=== PATIENT | male | born 1955 | race Caucasian/White ===

== ENCOUNTER 2016-06-30 07:47 | Inpatient (IN) | payer OTHER ==
[~2016-06-30] VITALS: Ht 182.9 cm; Wt 92.0 kg
[2016-06-30] VITALS (33 sets, daily range): BP systolic 108–142; BP diastolic 63–95; PULSE 72–94; RESP 12–19; Ht 182.9 cm; Wt 92.0 kg
[2016-06-30] MEDS ORDERED: VENL75TA2 PO (08:13)
[2016-06-30] MEDS ORDERED: AMLO5TAB4 PO (08:13)
[2016-06-30] MEDS ORDERED: HYDR-902 PO (09:13)
[2016-06-30] MEDS ORDERED: CEFAZOLIN 2 GM/50 ML (PMX) 50 ML IVPB SCH (09:30)
[2016-06-30] MEDS ORDERED: LACTATED RINGER'S 1,000 ML IV* SCH (09:30)
--- NOTE | 2016-06-30 09:57 | HPN ---
Date/Time of Note Date/Time of Note DATE: 06/30/16 TIME: 09:56 Interval H&P Admission Note Pt. seen H&P reviewed: No system changes ELISABETH MA PA-C Jun 30, 2016 09:57
[2016-06-30] MEDS ORDERED: DIPHENHYDRAMINE 50 MG INJ IV PRN ×2 (10:00→12:30)
[2016-06-30] MEDS ORDERED: ONDANSETRON 4 MG INJ IV PRN ×2 (10:00→12:30)
[2016-06-30] MEDS ORDERED: AL HYDROX/MG HYDROX/SIMETH 30 ML CUP PO PRN (10:00)
[2016-06-30] MEDS ORDERED: NALOXONE (0.4 MG/ML) INJ IV PRN (10:00)
[2016-06-30] MEDS ORDERED: BISACODYL 10 MG SUPP PR PRN (10:00)
[2016-06-30] MEDS ORDERED: CEFAZOLIN 1 GM/50 ML (PMX) 50 ML IVPB SCH (10:00)
[2016-06-30] MEDS ORDERED: ZOLPIDEM 5 MG TAB PO PRN (10:00)
[2016-06-30] MEDS ORDERED: HYDROmorphONE 1 MG/ML SYG IV PRN (10:00)
[2016-06-30] MEDS ORDERED: ACETAMINOPHEN 325 MG TAB PO PRN (10:00)
[2016-06-30] MEDS ORDERED: CEFAZOLIN 1 GM INJ ONE ×4 (10:13→13:08)
[2016-06-30] MEDS ORDERED: CA CHLORIDE 10% 10 ML SYRINGE ONE (10:13)
[2016-06-30] MEDS ORDERED: THROMBIN 5000 UNIT VIAL ONE (10:13)
[2016-06-30] MEDS ORDERED: HEPARIN 1000 UNITS/ML 10 ML INJ ONE (10:13)
[2016-06-30] MEDS ORDERED: BUPIVACAINE 0.25%/EPI (SDV) 30 ML INJ ONE (10:13)
[2016-06-30] MEDS ORDERED: SURGIFOAM POWDER 1 GM KIT ONE (10:13)
[2016-06-30] MEDS ORDERED: GELATIN SIZE 100 SPONGE ONE (10:14)
[2016-06-30] MEDS ORDERED: SODIUM CL BACTERIOSTATIC 30 ML INJ ONE (10:14)
[2016-06-30] MEDS ORDERED: PROPOFOL 20 ML ONE (10:19)
[2016-06-30] MEDS ORDERED: SUCCINYLCHOLINE CHLORIDE 100 MG/5 ML SYG IV ONE (10:19)
[2016-06-30] MEDS ORDERED: MIDAZOLAM 1 MG/ML 2 ML INJ ONE (10:19)
[2016-06-30] MEDS ORDERED: METOCLOPRAMIDE 10 MG INJ ONE (10:19)
[2016-06-30] MEDS ORDERED: ROCURONIUM 50 MG INJ ONE ×2 (10:19→11:09)
[2016-06-30] MEDS ORDERED: EPHEDrine SULFATE 50 MG/5 ML SYG ONE (11:03)
[2016-06-30] MEDS ORDERED: METOCLOPRAMIDE 10 MG INJ IV PRN (12:30)
[2016-06-30] MEDS ORDERED: MEPERIDINE 25 MG INJ IV PRN (12:30)
[2016-06-30] MEDS ORDERED: HYDROmorphONE (0.2 MG/ML) 10ML SYG IV PRN ×3 (12:30)
[2016-06-30] MEDS ORDERED: BUPIVACAINE 0.25% (MPF) 10 ML 10 ML VIAL ONE (13:02)
[2016-06-30] MEDS ORDERED: FENTAnyl 50 MCG/ML VIAL ONE (13:03)
[2016-06-30] MEDS ORDERED: NEOSTIGMINE 3 MG/3 ML SYRINGE ONE (13:40)
[2016-06-30] MEDS ORDERED: GLYCOPYRROLATE 1 MG INJ ONE (13:40)
--- NOTE | 2016-06-30 13:59 | RADRPT ---
PROCEDURE: XR Lumbar Spine one view. CLINICAL INDICATION: Low back pain. Intraoperative. TECHNIQUE: Prone portable cross-table lateral. COMPARISON: No prior studies are available for comparison. FINDINGS: For the purposes of this report, the last apparent true disc level is considered to be L5-S1. Based on this, the posterior needle markers are present at L3 spinous process level and L5-S1 spinous pro cess level. IMPRESSION: 1. Intraoperative imaging as described above. RPTAT: QQ .Bill Gaspar MD, Date Time Electronically viewed and signed by .Bill Gaspar MD, on 06/30/2016 13:59 .R/
--- NOTE | 2016-06-30 14:00 | RADRPT ---
PROCEDURE: XR Lumbar Spine one view. CLINICAL INDICATION: Low back pain. Intraoperative. TECHNIQUE: Prone portable cross-table lateral. COMPARISON: No prior studies are available for comparison. FINDINGS: For the purposes of this report, the last apparent true disc level is considered to be L5-S1. Based on this, the posterior surgical instruments are present at the L2-3, L3-4, L4-5, and L5-S1 levels. IMPRESSION: 1. Intraoperative imaging as described above. RPTAT: QQ .Bill Gaspar MD, MD Date Time Electronically viewed and signed by .Bill Gaspar MD, MD on 06/30/2016 14:00 .R/
[2016-06-30] MEDS: HYDROmorphONE 0.2 MG/ML PCA IV SCH ×2 (14:21→20:00)
--- NOTE | 2016-06-30 14:22 | OPR ---
DATE OF OPERATION: 06/30/2016 PREOPERATIVE DIAGNOSIS: L3 to L4, L4 to L5, L5 to S1 stenosis with radiculopathy. POSTOPERATIVE DIAGNOSIS: L3 to L4, L4 to L5, L5 to S1 stenosis with radiculopathy. PROCEDURE PERFORMED: 1. Central decompressive laminectomy at L3 to L4, L4 to L5, L5 to S1 with decompression of L3, L4, L5, S1 nerve roots. 2. Intraoperative neuromonitoring (2.5 hours). 3. Epidural injection via catheter. 4. Lateral localizing film x2. PRIMARY SURGEON: Jean Carlos Blanton MD HARDWARE TECHNICIAN: LATASHA Dillard NEED FOR MILL WORK: During this spinal surgical procedure, my delinquent tax collector assistant was used to retrac t and protect the spinal nerves and dural sac. My delinquent tax collector assistant also employed the suction catheters to evacuate blood from the surgical field to improve visualization of the neural structures. The viktor tant was medically necessary to facilitate the completion of the surgery in a safe and expeditious m nida. [facility] regulations, as well as hospital bylaws, preclude the use of non-license d health care personnel, such as operating room technicians, to perform these functions. FINDINGS: Neuromonitoring at the start of the case revealed bilateral L3 amplitude down 40%, bilate ral L4 amplitude down 30%, bilateral L5 amplitude down 40%, bilateral S1 amplitude down 30%. At the end of the case, nerve signals returned to normal. The patient had severe stenosis from L3 to the sacrum. ESTIMATED BLOOD LOSS: 400 mL with blood returned via Cell Saver. DRAINS: x1. SPECIMENS: Spinous process. COMPLICATIONS OF PROCEDURES: None. ANESTHESIOLOGIST: Akosua Bright MD TYPE OF ANESTHESIA: General. INDICATIONS FOR PROCEDURE: This is a 61-year-old gentleman with lumbosacral radiculopathy in the se tting of multilevel stenoses. He has failed nonoperative measures; therefore, it was recommended th at he undergo the above procedure. DESCRIPTION OF PROCEDURE IN DETAIL: The patient was identified in the preoperative holding area, [facility], taken to the operating room, where he was successfully placed under general an esthesia. Neuromonitoring leads were placed, sequential compressive devices were applied. Oh ca theter was introduced. Neuromonitoring was utilized during the procedure for 2.5 hours to include S SEP, MEP, and EMG. This was performed by Quill. Start time was 11:00 a.m., closure time was 1:30 p.m. The patient was placed on the operating table in prone position over a Franko frame. All bony prominences were padded. Back was then prepped and draped in the usual sterile fashion. Spinal needles were placed and lateral localizing films obtained to confirm the correct levels. I next injected the paraspinal musculature with 0.25% Marcaine and epinephrine. Incision was then made from L3 to the sacrum. Incision was taken down to the dorsal fascia, which w as incised with Bovie cautery. I then subperiosteally dissected the L3, L4, L5, and S1 lamina bilat erally. Retractors were placed. Kochers were placed surrounding the spinous processes and repeat l ateral films obtained to confirm the correct levels. Once this was confirmed, a central decompressi ve laminectomy was performed at L3 to L4, L4 to L5 and L5 to S1 using Leksell rongeurs, Garrett arvind eurs and pituitary punches. Ligamentum flavum was dissected. Lateral recesses decompressed. I the n decompressed the L3, L4, L5, S1 nerve roots bilaterally throughout their intraspinal course. This was done bilaterally. Once this was done, all nerve signals returned to normal. Hemostasis was ac hieved with Surgifoam and bone wax. The wound was then irrigated. A Valsalva maneuver was performe d and there was no leak of CSF. An additional dose of antibiotics were given. Epidural catheter was passed through which I injected 100 mcg of fentanyl mixed with 2 mL of Marcain e 0.25% preservative-free, and the catheter was pulled. Anesthesiologist yoshi peripheral blood, whi ch was spun using the wumo device, and took the platelet-poor plasma mixed with thrombin and inj ected this over the dura for hemostatic purposes. A deep subfascial drain was placed. The retracto rs were removed. I closed the deep fascia with a running #1 Stratafix suture. I then closed the vázquez bcutaneous tissue with a 2-0 Vicryl stitch. A 4-0 Monocryl closure was then performed. Dermabond a nd sterile dressings were then applied. The patient was then awakened from anesthesia and taken to the recovery room in stable condition. Lap, sponge, and instrument counts were correct x2. There w ere no apparent complications during the procedure. The patient will be admitted to the orthopedic uriostegui for routine postoperative care to include pain c ontrol, neurovascular checks, antibiotics, and physical therapy. Dictated By: JEAN CARLOS STEELE/JUDSON Conf#: [id number] DID#: [id number]
[2016-06-30] MEDS: AMLODIPINE 5 MG TAB PO SCH (17:00)
--- NOTE | 2016-06-30 17:27 | CONS ---
DATE OF ADMISSION: 06/30/2016 DATE OF CONSULTATION: 06/30/2016 TYPE OF CONSULTATION: POSTOPERATIVE MEDICAL CONSULTATIVE NOTE Thank you very much for allowing me to evaluate the above patient, a 61-year-old male who just under went lumbar back surgery. HISTORICAL EVENTS: As you well know, this patient has had ongoing and disabling left leg pain and f ollowing your evaluation and MRI imaging, the patient elected to proceed with surgery. Postoperativ viviana, he notes modest back discomfort, but the absence of cough, wheezing, shortness of breath, nause a, vomiting, abdominal or chest pain. PAST MEDICAL HISTORY: Includes: 1. Right knee, left ankle, right shoulder and cervical spine surgery. 2. History of hypertension. 3. Hyperlipidemia. MEDICATIONS: Prior to admission: 1. Lidocaine patch p.r.n. 2. Amlodipine 5 mg per day. 3. Venlafaxine 37.5 mg 2 caps daily. 4. Soma 350 mg t.i.d. p.r.n. SOCIAL HISTORY: He is , works in the [employer], does not smoke. PHYSICAL EXAMINATION: GENERAL: [place] male, no acute distress. VITAL SIGNS: BP 122/80, pulse 70, respirations 20. He was afebrile. EYES: Extraocular muscles were full. NOSE, MOUTH, AND THROAT: Normal. NECK: Supple. There was no jugular venous distention, thyroid enlargement or adenopathy. Carotids 2+, no bruits. LUNGS: Clear. HEART: Rhythm regular, no murmur. No third or fourth sound. ABDOMEN: Nontender. Liver and spleen were not palpable. No masses or tenderness were noted. EXTREMITIES: No edema. Calves nontender. Pulses 2+. IMPRESSION: I perceive no problems with the planned surgical. IMPRESSION: 1. Stable postop lumbar laminectomy. 2. History of hypertension. Will resume Norvasc. 3. We will follow him daily and observe for signs and symptoms of thromboembolic disease. Dictated By: OPAL MEDEIROS MD MR/NTS Conf#: [id number] DID#: [id number] CC: KAIT LÓPEZ MD;*EndCC*
[2016-06-30] MEDS: D5W-0.45 NACL + KCL 20 MEQ 1,000 ML IV SCH ×2 (17:37→20:00)
[2016-06-30] MEDS ORDERED: VENLAFAXINE (XR) 75 MG CAP PO SCH (18:00)
[2016-06-30] MEDS: DOCUSATE SODIUM 100 MG CAP PO SCH (20:02)
[2016-07-01] VITALS: BP 116/75; PULSE 91; RESP 18
[2016-07-01] MEDS: CYCLOBENZAPRINE 10 MG TAB PO PRN ×3 (01:22→19:58)
[2016-07-01] MEDS: CEFAZOLIN 1 GM/50 ML (PMX) 50 ML IVPB SCH ×2 (01:22→09:40)
[2016-07-01] MEDS: CEPASTAT LOZENGE MT PRN ×3 (01:22→19:58)
[2016-07-01] MEDS: HYDROmorphONE 0.2 MG/ML PCA IV SCH ×2 (01:23→15:05)
[2016-07-01 05:00] LABS: ADD SCAN DIFF NO
[2016-07-01 05:06] LABS: BASOPHILS % 0.2 % (0.0-2.0); EOSINOPHILS % 0.2 % (0.0-7.0); HEMATOCRIT 41.5 % (42.0-52.0); HEMOGLOBIN 13.7 g/dl (14.0-18.0); LYMPHOCYTES # 0.9 10^3/ul (0.8-2.9); MEAN CORPUSCULAR HEMOGLOBIN 30.6 pg (29.0-33.0); MEAN CORPUSCULAR VOLUME 92.6 fl (82.0-101.0); MEAN PLATELET VOLUME 10.8 fl (7.4-10.4); MONOCYTE # 0.9 10^3/ul (0.3-0.9); MONOCYTES % 8.2 % (0.0-11.0); NEUTROPHIL # 9.4 10^3/ul (1.6-7.5); NEUTROPHILS % 83.1 % (39.0-77.0); PLATELET COUNT 185 10^3/UL (140-415); RED BLOOD COUNT 4.48 10^6/ul (4.70-6.10); RED CELL DISTRIBUTION WIDTH 12.7 % (11.5-14.5); WHITE BLOOD COUNT 11.3 10^3/ul (4.8-10.8)
[2016-07-01 05:14] LABS: POTASSIUM 4.6 mmol/L (3.5-5.1)
[2016-07-01 05:17] LABS: CREATININE 0.84 mg/dl (0.61-1.24)
[2016-07-01 05:18] LABS: CALCIUM 8.8 mg/dl (8.4-10.2)
[2016-07-01 05:24] VITALS: BP 112/71; PULSE 95; RESP 18
[2016-07-01] MEDS: D5W-0.45 NACL + KCL 20 MEQ 1,000 ML IV SCH ×2 (05:57→15:05)
[2016-07-01 07:39] VITALS: BP 125/74; RESP 18
--- NOTE | 2016-07-01 08:37 | CONS ---
Date/Time of Note Date/Time of Note DATE: 07/01/16 TIME: 08:35 Assessment/Plan Assessment/Plan Additional Assessment/Plan 1. Stable postop lumbar laminectomy. 2. History of hypertension, controlled 3. Labs rev Consultation Date/Type/Reason Admit Date/Time Jun 30, 2016 at 07:47 Initial Consult Date Detailed Summary Respiratory: No cough, No shortness of breath Cardiovascular: No chest pain Gastrointestinal: no complaints Genitourinary: other (chino in place) Musculoskeletal: back pain (moderate with mild leg radic pain bilat) Exam/Review of Systems Vital Signs Vitals Vital Signs Date Time Temp Pulse Resp B/P Pulse Ox O2 Delivery O2 Flow Rate FiO2 07/01/16 07:39 100.1 95 18 125/74 94 07/01/16 05:24 Nasal Cannula 2.0 Intake and Output 06/30/16 06/30/16 07/01/16 15:00 23:00 07:00 Intake Total 1150 ml 290 ml 1750 ml Output Total 720 ml 745 ml 1300 ml Balance 430 ml -455 ml 450 ml Exam Neck: No jvd Respiratory: clear to auscultation Cardiovascular: regular rate and rhythm Gastrointestinal: soft Extremities: No edema (and no calf tend) Results Result Diagram: 07/01/16 0439 07/01/16 0439 Results 24 hrs Laboratory Tests Test 07/01/16 04:39 White Blood Count 11.3 H Red Blood Count 4.48 L Hemoglobin 13.7 L Hematocrit 41.5 L Mean Corpuscular Volume 92.6 Mean Corpuscular Hemoglobin 30.6 Mean Corpuscular Hemoglobin Concent 33.0 Red Cell Distribution Width 12.7 Platelet Count 185 Mean Platelet Volume 10.8 H Neutrophils % 83.1 H Lymphocytes % 8.0 L Monocytes % 8.2 Eosinophils % 0.2 Basophils % 0.2 Nucleated Red Blood Cells % 0.0 Neutrophils # 9.4 H Lymphocytes # 0.9 Monocytes # 0.9 Eosinophils # 0.0 Basophils # 0.0 Nucleated Red Blood Cells # 0.0 Sodium Level 137 Potassium Level 4.6 Chloride Level 99 Carbon Dioxide Level 29 Anion Gap 14 Blood Urea Nitrogen 11 Creatinine 0.84 Glucose Level 133 Calcium Level 8.8 Magnesium Level 2.0 Medications Medications Current Medications Lactated Ringer's 1,000 ml @ 20 mls/hr Q24H IV* ; Start 06/30/16 at 09:30; Stop 07/02/16 at 11:29 Potassium Chloride/Dextrose/ Sod Cl (D5-1/2ns + KCl 20 Meq) 1,000 ml @ 100 mls/ hr Q10H IV Last administered on 06/30/16 20:00; Admin Dose 100 MLS/HR; Start 06/30/16 at 09:57 Oxycodone/ Acetaminophen (Endocet (10/ 325)) 1 tab Q4H PRN PO PAIN LEVEL 1-5; Start 06/30/16 at 10:00 Oxycodone/ Acetaminophen (Endocet (10/ 325)) 2 tab Q4H PRN PO PAIN LEVEL 6-10; Start 06/30/16 at 10:00 Hydromorphone HCl (Dilaudid) 0.2 mg Q1H PRN IV BREAKTHROUGH PAIN; Start at 10:00 Ondansetron HCl (Zofran Inj) 4 mg Q6H PRN IV NAUSEA AND/OR VOMITING; Start 02/05 at 10:00 Bisacodyl (Dulcolax Supp) 10 mg DAILY PRN [place] CONSTIPATION; Start 06/30/16 at 10 :00 Docusate Sodium (Colace) 100 mg BID PO ; Start 06/30/16 at 21:00 Al Hydrox/Mg Hydrox/Simethicone (Mag-Al Plus) 15 ml Q6H PRN PO CONSTIPATION/ DYSPEPSIA; Start 06/30/16 at 10:00 Acetaminophen (Tylenol Tab) 650 mg Q4H PRN PO CASTORENA OR TEMP GREATER THAN 101.3F; Start 06/30/16 at 10:00 Cyclobenzaprine HCl (Flexeril) 10 mg TID PRN PO MUSCLE SPASMS Last administered on 07/01/16 01:22; Admin Dose 10 MG; Start 06/30/16 at 10:00 Phenol (Cepastat Lozenge) 1 lozenge PRN PRN MT SORE THROAT Last administered on 07/01/16 06:03; Admin Dose 1 LOZENGE; Start 06/30/16 at 10:00 Diphenhydramine HCl (Benadryl) 25 mg Q6H PRN IV ITCHING; Start 06/30/16 at 10: 00 Naloxone HCl (Narcan) 0.2 mg Q2M PRN IV RR 8 BREATHS/MIN OR LESS; Start at 10:00 Hydromorphone HCl (Dilaudid TOP PRECIPITATOR OPERATOR) TOP PRECIPITATOR OPERATOR to be started in PACU Q4PCA IV Last administered on 07/01/16 01:23; Admin Dose 6 MG; Start 06/30/16 at 10:00 Miscellaneous Information 1. Hold TOP PRECIPITATOR OPERATOR at 1,000... TOP PRECIPITATOR OPERATOR IV ; Start 06/30/16 at 10: 00 Amlodipine Besylate (Norvasc) 5 mg DAILY PO ; Start 06/30/16 at 17:00 Venlafaxine HCl 75 mg 75 mg DAILY PO ; Start 07/01/16 at 09:00 Cefazolin Sodium (Ancef 1 Gm/50 ml (Pmx)) 50 ml @ 100 mls/hr Q8H IVPB Last administered on 07/01/16 01:22; Admin Dose 100 MLS/HR; Start 07/01/16 at 02:00 ; Stop 07/01/16 at 10:29 OPAL MEDEIROS MD Jul 01, 2016 08:37
[2016-07-01] MEDS: DOCUSATE SODIUM 100 MG CAP PO SCH (09:36)
[2016-07-01] MEDS: VENLAFAXINE (XR) 75 MG CAP PO SCH (09:36)
[2016-07-01] MEDS: AMLODIPINE 5 MG TAB PO SCH (09:37)
--- NOTE | 2016-07-01 12:18 | PN ---
Date/Time of Note Date/Time of Note DATE: 07/01/16 TIME: 12:18 Assessment/Plan Lines/Catheters IV Catheter Type (from Nrsg): Peripheral IV Oh in Place (from Nrsg): Yes Assessment/Plan Assessment/Plan s/p lumbar decompress pain control, PT, routine care Subjective 24 Hr Interval Summary c/o LBP Exam/Review of Systems Vital Signs Vitals Vital Signs Date Time Temp Pulse Resp B/P Pulse Ox O2 Delivery O2 Flow Rate FiO2 07/01/16 10:22 20 07/01/16 07:39 100.1 95 125/74 94 07/01/16 05:24 Nasal Cannula 2.0 Intake and Output 06/30/16 06/30/16 07/01/16 15:00 23:00 07:00 Intake Total 1150 ml 290 ml 1750 ml Output Total 720 ml 745 ml 1300 ml Balance 430 ml -455 ml 450 ml Exam Free Text/Dictation NVI Results Result Diagram: 07/01/16 0439 07/01/16 0439 KAIT LÓPEZ MD Jul 01, 2016 12:18
[2016-07-01 19:36] VITALS: BP 113/65; RESP 18
[2016-07-02] MEDS: HYDROmorphONE 0.2 MG/ML PCA IV SCH (01:30)
--- NOTE | 2016-07-02 03:38 | RADRPT ---
PROCEDURE: Ultrasound examination of bilateral lower extremities veins with Doppler. CLINICAL INDICATION: Leg pain and swelling. TECHNIQUE: Multiple sonographic images of bilateral lower extremity venous systems were performed with de scale and color Doppler. COMPARISON: None. FINDINGS: Bilateral common femoral, superficial femoral and popliteal veins demonstrate normal color flow, wav eforms, compression and response to augmentation. There is no evidence of deep venous thrombosis. IMPRESSION: No evidence of deep venous thrombosis within bilateral lower extremities. .Timo Brennan MD, MD Date Time Electronically viewed and signed by .Timo Brennan MD, MD on 07/02/2016 03:37 .T/
[2016-07-02 05:11] LABS: ADD SCAN DIFF NO
[2016-07-02 05:15] LABS: BASOPHILS % 0.2 % (0.0-2.0); EOSINOPHILS # 0.2 10^3/ul (0.0-0.5); EOSINOPHILS % 1.1 % (0.0-7.0); HEMATOCRIT 42.3 % (42.0-52.0); HEMOGLOBIN 14.1 g/dl (14.0-18.0); LYMPHOCYTES # 1.5 10^3/ul (0.8-2.9); LYMPHOCYTES % 11.2 % (15.0-51.0); MEAN CORPUSCULAR HEMOGLOBIN 30.9 pg (29.0-33.0); MEAN CORPUSCULAR HGB CONC 33.3 g/dl (32.0-37.0); MEAN CORPUSCULAR VOLUME 92.8 fl (82.0-101.0); MEAN PLATELET VOLUME 10.9 fl (7.4-10.4); MONOCYTE # 1.4 10^3/ul (0.3-0.9); MONOCYTES % 10.5 % (0.0-11.0); NEUTROPHIL # 10.4 10^3/ul (1.6-7.5); NEUTROPHILS % 76.7 % (39.0-77.0); PLATELET COUNT 181 10^3/UL (140-415); RED BLOOD COUNT 4.56 10^6/ul (4.70-6.10); RED CELL DISTRIBUTION WIDTH 12.4 % (11.5-14.5); WHITE BLOOD COUNT 13.5 10^3/ul (4.8-10.8)
[2016-07-02] MEDS: DOCUSATE SODIUM 100 MG CAP PO SCH ×3 (05:26→19:35)
[2016-07-02] MEDS: CYCLOBENZAPRINE 10 MG TAB PO PRN ×2 (05:26→19:35)
[2016-07-02] MEDS: D5W-0.45 NACL + KCL 20 MEQ 1,000 ML IV SCH (05:26)
[2016-07-02 05:28] LABS: CALCIUM 8.7 mg/dl (8.4-10.2); CREATININE 0.85 mg/dl (0.61-1.24); POTASSIUM 4.7 mmol/L (3.5-5.1)
--- NOTE | 2016-07-02 07:59 | PN ---
Date/Time of Note Date/Time of Note DATE: 07/02/16 TIME: 07:51 Assessment/Plan Lines/Catheters IV Catheter Type (from Nrsg): Peripheral IV Chino in Place (from Nrsg): Yes Assessment/Plan Assessment/Plan s/p lumbar decompression u/s r/o DVT negative joint pain may be 2/2 positioning from sx, ddx - gouty flare, will observe ambulate d/c chino and photovoltaic panel installer later this AM anticipate D/C tomorrow AM Subjective 24 Hr Interval Summary patient feels back is improving c/o right knee, left ankle discomfort Exam/Review of Systems Vital Signs Vitals Vital Signs Date Time Temp Pulse Resp B/P Pulse Ox O2 Delivery O2 Flow Rate FiO2 07/02/16 05:45 98.5 07/02/16 05:00 18 07/01/16 19:36 98 113/65 94 07/01/16 05:24 Nasal Cannula 2.0 Intake and Output 07/01/16 07/01/16 07/02/16 15:00 23:00 07:00 Intake Total 2050 ml 2200 ml Output Total 1600 ml 1525 ml Balance 450 ml 675 ml Exam Free Text/Dictation AF NVID no joint pain with passive ROM no LE edema/cording drain output 25 cc/last shift - D/C'ed, new dressing applied incision C/D/I Results Result Diagram: 07/02/16 0431 07/02/16 0431 ELISABETH MA PA-C Jul 02, 2016 07:59
[2016-07-02 08:06] VITALS: BP 126/74; RESP 18
[2016-07-02] MEDS: VENLAFAXINE (XR) 75 MG CAP PO SCH (08:52)
[2016-07-02] MEDS: AMLODIPINE 5 MG TAB PO SCH (08:53)
[2016-07-02] MEDS: OXYCODONE/ACETAMINOPHEN (10/325) TAB PO PRN ×4 (08:55→22:04)
--- NOTE | 2016-07-02 12:19 | CONS ---
Date/Time of Note Date/Time of Note DATE: 07/02/16 TIME: 12:15 Assessment/Plan Assessment/Plan Additional Assessment/Plan 1. Post op lumbar laminectomy, with mod pain. 2. Hyponatremia prob sec siadh sec to pain, Lucille ordered and IV changed 3. Pain left ankle and right knee--prob gout (hx of same), will start colchicine 4. BP is controlled Consultation Date/Type/Reason Admit Date/Time Jun 30, 2016 at 07:47 Detailed Summary Respiratory: No shortness of breath Cardiovascular: No chest pain, No lightheadedness Gastrointestinal: other (constipated) Genitourinary: no complaints Musculoskeletal: back pain (moderate), other (left ankle pain and right knee pain) Exam/Review of Systems Vital Signs Vitals Vital Signs Date Time Temp Pulse Resp B/P Pulse Ox O2 Delivery O2 Flow Rate FiO2 07/02/16 08:06 98.5 94 18 126/74 96 07/01/16 05:24 Nasal Cannula 2.0 Intake and Output 07/01/16 07/01/16 07/02/16 15:00 23:00 07:00 Intake Total 2050 ml 2200 ml Output Total 1600 ml 1525 ml Balance 450 ml 675 ml Exam Neck: No jvd Respiratory: clear to auscultation Cardiovascular: regular rate and rhythm Gastrointestinal: soft Musculoskeletal: other (left ankle swollen and warm and right knee) Extremities: No edema, No tenderness Results Result Diagram: 07/02/16 0431 07/02/16 0431 Results 24 hrs Laboratory Tests Test 07/02/16 04:31 White Blood Count 13.5 H Red Blood Count 4.56 L Hemoglobin 14.1 Hematocrit 42.3 Mean Corpuscular Volume 92.8 Mean Corpuscular Hemoglobin 30.9 Mean Corpuscular Hemoglobin Concent 33.3 Red Cell Distribution Width 12.4 Platelet Count 181 Mean Platelet Volume 10.9 H Neutrophils % 76.7 Lymphocytes % 11.2 L Monocytes % 10.5 Eosinophils % 1.1 Basophils % 0.2 Nucleated Red Blood Cells % 0.0 Neutrophils # 10.4 H Lymphocytes # 1.5 Monocytes # 1.4 H Eosinophils # 0.2 Basophils # 0.0 Nucleated Red Blood Cells # 0.0 Sodium Level 130 L Potassium Level 4.7 Chloride Level 95 L Carbon Dioxide Level 30 Anion Gap 10 Blood Urea Nitrogen 9 Creatinine 0.85 Glucose Level 109 Calcium Level 8.7 Magnesium Level 2.0 Medications Medications Current Medications Potassium Chloride/Dextrose/ Sod Cl (D5-1/2ns + KCl 20 Meq) 1,000 ml @ 100 mls/ hr Q10H IV Last administered on 07/02/16 05:26; Admin Dose 100 MLS/HR; Start 06/30/16 at 09:57 Oxycodone/ Acetaminophen (Endocet (10/ 325)) 1 tab Q4H PRN PO PAIN LEVEL 1-5; Start 06/30/16 at 10:00 Oxycodone/ Acetaminophen (Endocet (10/ 325)) 2 tab Q4H PRN PO PAIN LEVEL 6-10 Last administered on 07/02/16 08:55; Admin Dose 2 TAB; Start 06/30/16 at 10:00 Hydromorphone HCl (Dilaudid) 0.2 mg Q1H PRN IV BREAKTHROUGH PAIN; Start at 10:00 Ondansetron HCl (Zofran Inj) 4 mg Q6H PRN IV NAUSEA AND/OR VOMITING; Start 02/05 at 10:00 Bisacodyl (Dulcolax Supp) 10 mg DAILY PRN [place] CONSTIPATION; Start 06/30/16 at 10 :00 Docusate Sodium (Colace) 100 mg BID PO Last administered on 07/02/16 08:52; Admin Dose 100 MG; Start 06/30/16 at 21:00 Al Hydrox/Mg Hydrox/Simethicone (Mag-Al Plus) 15 ml Q6H PRN PO CONSTIPATION/ DYSPEPSIA; Start 06/30/16 at 10:00 Acetaminophen (Tylenol Tab) 650 mg Q4H PRN PO CASTORENA OR TEMP GREATER THAN 101.3F Last administered on 07/01/16 19:58; Admin Dose 650 MG; Start 06/30/16 at 10:00 Cyclobenzaprine HCl (Flexeril) 10 mg TID PRN PO MUSCLE SPASMS Last administered on 07/02/16 05:26; Admin Dose 10 MG; Start 06/30/16 at 10:00 Phenol (Cepastat Lozenge) 1 lozenge PRN PRN MT SORE THROAT Last administered on 07/01/16 19:58; Admin Dose 1 LOZENGE; Start 06/30/16 at 10:00 Diphenhydramine HCl (Benadryl) 25 mg Q6H PRN IV ITCHING; Start 06/30/16 at 10: 00 Naloxone HCl (Narcan) 0.2 mg Q2M PRN IV RR 8 BREATHS/MIN OR LESS; Start at 10:00 Miscellaneous Information 1. Hold TRAY PACKER at 1,000... TRAY PACKER IV ; Start 06/30/16 at 10: 00 Amlodipine Besylate (Norvasc) 5 mg DAILY PO Last administered on 07/02/16 08: 53; Admin Dose 5 MG; Start 06/30/16 at 17:00 Venlafaxine HCl (Effexor Xr) 75 mg DAILY PO Last administered on 07/02/16 08: 52; Admin Dose 75 MG; Start 07/01/16 at 09:00 Hydromorphone HCl (Dilaudid TRAY PACKER) TRAY PACKER to be started in PACU Q4PCA IV Last administered on 07/02/16 01:30; Admin Dose 6 MG; Start 07/01/16 at 10:30 OPAL MEDEIROS MD Jul 02, 2016 12:19
[2016-07-02] MEDS: COLCHICINE 0.6 MG TAB PO SCH ×3 (13:00→22:04)
[2016-07-02] MEDS: SOD CHLORIDE 0.9% 1,000 ML IV SCH ×2 (13:18→22:10)
[2016-07-02 19:22] VITALS: BP 121/73; RESP 20
[2016-07-03] MEDS: DOCUSATE SODIUM 100 MG CAP PO SCH ×2 (04:44→20:57)
[2016-07-03] MEDS: OXYCODONE/ACETAMINOPHEN (10/325) TAB PO PRN ×4 (04:44→20:58)
[2016-07-03 05:03] LABS: ADD SCAN DIFF NO
[2016-07-03 05:08] LABS: BASOPHILS % 0.2 % (0.0-2.0); EOSINOPHILS # 0.2 10^3/ul (0.0-0.5); HEMATOCRIT 36.8 % (42.0-52.0); HEMOGLOBIN 12.3 g/dl (14.0-18.0); LYMPHOCYTES # 1.1 10^3/ul (0.8-2.9); LYMPHOCYTES % 11.9 % (15.0-51.0); MEAN CORPUSCULAR HEMOGLOBIN 30.4 pg (29.0-33.0); MEAN CORPUSCULAR HGB CONC 33.4 g/dl (32.0-37.0); MEAN CORPUSCULAR VOLUME 90.9 fl (82.0-101.0); MEAN PLATELET VOLUME 10.7 fl (7.4-10.4); MONOCYTES % 11.3 % (0.0-11.0); NEUTROPHIL # 6.6 10^3/ul (1.6-7.5); NEUTROPHILS % 74.4 % (39.0-77.0); PLATELET COUNT 170 10^3/UL (140-415); RED BLOOD COUNT 4.05 10^6/ul (4.70-6.10); RED CELL DISTRIBUTION WIDTH 12.2 % (11.5-14.5); WHITE BLOOD COUNT 8.8 10^3/ul (4.8-10.8)
[2016-07-03 05:12] LABS: POTASSIUM 4.1 mmol/L (3.5-5.1)
[2016-07-03 05:14] LABS: CREATININE 0.8 mg/dl (0.61-1.24)
[2016-07-03 05:15] LABS: CALCIUM 8.5 mg/dl (8.4-10.2); MAGNESIUM 2.1 mg/dl (1.7-2.5)
[2016-07-03] MEDS: SOD CHLORIDE 0.9% 1,000 ML IV SCH ×2 (06:09→13:30)
[2016-07-03 08:11] VITALS: BP 119/74; RESP 14
[2016-07-03] MEDS: AMLODIPINE 5 MG TAB PO SCH (08:44)
[2016-07-03] MEDS: COLCHICINE 0.6 MG TAB PO SCH (08:44)
[2016-07-03] MEDS: VENLAFAXINE (XR) 75 MG CAP PO SCH (08:44)
--- NOTE | 2016-07-03 08:51 | PN ---
Date/Time of Note Date/Time of Note DATE: 07/03/16 TIME: 08:49 Assessment/Plan Lines/Catheters IV Catheter Type (from Nrs): Peripheral IV Oh in Place (from Nrs): No Assessment/Plan Assessment/Plan s/p lumbar decompression gout vs. pseudogout flare - colchicine per Dr. Tolentino, start steroids today anticipate D/C tomorrow Subjective 24 Hr Interval Summary c/o left ankle and right knee pain ddx - gout vs. pseudogout prior h/o left ankle gouty flare Exam/Review of Systems Vital Signs Vitals Vital Signs Date Time Temp Pulse Resp B/P Pulse Ox O2 Delivery O2 Flow Rate FiO2 07/03/16 08:11 99.6 98 14 119/74 92 07/01/16 05:24 Nasal Cannula 2.0 Intake and Output 07/02/16 07/02/16 07/03/16 15:00 23:00 07:00 Intake Total 200 ml 1650 ml 1300 ml Output Total 950 ml 900 ml Balance 200 ml 700 ml 400 ml Exam Free Text/Dictation NVID AF, VSS Results Result Diagram: 07/03/16 0430 07/03/16 0430 ELISABETH MA PA-C Jul 03, 2016 08:51
--- NOTE | 2016-07-03 08:56 | CONS ---
Date/Time of Note Date/Time of Note DATE: 07/03/16 TIME: 08:53 Assessment/Plan Assessment/Plan Additional Assessment/Plan 1. Doing well post op lumbar laminectomy. 2. Gouty arthritis with hx of the same, will start solumedrol and daily colchicine, blood cultures to be obtained. 3. Hx depression, he is coping quite well post op 4. Hyponatremia, resolved, will dc fluid restriction Consultation Date/Type/Reason Admit Date/Time Jun 30, 2016 at 07:47 Detailed Summary Respiratory: No cough, No shortness of breath Cardiovascular: No chest pain Gastrointestinal: no complaints Musculoskeletal: back pain (moderate), bone/joint pain (inc pain right knee and left ankle and now right ankle) Exam/Review of Systems Vital Signs Vitals Vital Signs Date Time Temp Pulse Resp B/P Pulse Ox O2 Delivery O2 Flow Rate FiO2 07/03/16 08:11 99.6 98 14 119/74 92 07/01/16 05:24 Nasal Cannula 2.0 Intake and Output 07/02/16 07/02/16 07/03/16 15:00 23:00 07:00 Intake Total 200 ml 1650 ml 1300 ml Output Total 950 ml 900 ml Balance 200 ml 700 ml 400 ml Exam Neck: No jvd Respiratory: clear to auscultation Cardiovascular: regular rate and rhythm Gastrointestinal: soft Musculoskeletal: joint tenderness (left and right ankle are warm and tender as is right knee) Extremities: No edema (and no calf tend) Results Result Diagram: 07/03/16 0430 07/03/16 0430 Results 24 hrs Laboratory Tests Test 07/02/16 13:27 07/03/16 04:30 Urine Random Sodium < 13 L White Blood Count 8.8 # Red Blood Count 4.05 L Hemoglobin 12.3 L Hematocrit 36.8 L Mean Corpuscular Volume 90.9 Mean Corpuscular Hemoglobin 30.4 Mean Corpuscular Hemoglobin Concent 33.4 Red Cell Distribution Width 12.2 Platelet Count 170 Mean Platelet Volume 10.7 H Neutrophils % 74.4 Lymphocytes % 11.9 L Monocytes % 11.3 H Eosinophils % 2.0 Basophils % 0.2 Nucleated Red Blood Cells % 0.0 Neutrophils # 6.6 Lymphocytes # 1.1 Monocytes # 1.0 H Eosinophils # 0.2 Basophils # 0.0 Nucleated Red Blood Cells # 0.0 Sodium Level 135 Potassium Level 4.1 Chloride Level 98 Carbon Dioxide Level 29 Anion Gap 12 Blood Urea Nitrogen 10 Creatinine 0.80 Glucose Level 101 Calcium Level 8.5 Phosphorus Level 3.5 Magnesium Level 2.1 Medications Medications Current Medications Oxycodone/ Acetaminophen (Endocet (10 325)) 1 tab Q4H PRN PO PAIN LEVEL 1-5 Last administered on 07/03/16 04:44; Admin Dose 1 TAB; Start 06/30/16 at 10:00 Oxycodone/ Acetaminophen (Endocet ( 325)) 2 tab Q4H PRN PO PAIN LEVEL 6-10 Last administered on 07/03/16 08:49; Admin Dose 2 TAB; Start 06/30/16 at 10:00 Hydromorphone HCl (Dilaudid) 0.2 mg Q1H PRN IV BREAKTHROUGH PAIN; Start at 10:00 Ondansetron HCl (Zofran Inj) 4 mg Q6H PRN IV NAUSEA AND/OR VOMITING; Start 02/05 at 10:00 Bisacodyl (Dulcolax Supp) 10 mg DAILY PRN RI CONSTIPATION; Start 06/30/16 at 10 :00 Docusate Sodium (Colace) 100 mg BID PO Last administered on 07/03/16 04:44; Admin Dose 100 MG; Start 06/30/16 at 21:00 Al Hydrox/Mg Hydrox/Simethicone (Mag-Al Plus) 15 ml Q6H PRN PO CONSTIPATION/ DYSPEPSIA; Start 06/30/16 at 10:00 Acetaminophen (Tylenol Tab) 650 mg Q4H PRN PO CASTORENA OR TEMP GREATER THAN 101.3F Last administered on 07/01/16 19:58; Admin Dose 650 MG; Start 06/30/16 at 10:00 Cyclobenzaprine HCl (Flexeril) 10 mg TID PRN PO MUSCLE SPASMS Last administered on 07/02/16 19:35; Admin Dose 10 MG; Start 06/30/16 at 10:00 Phenol (Cepastat Lozenge) 1 lozenge PRN PRN MT SORE THROAT Last administered on 07/01/16 19:58; Admin Dose 1 LOZENGE; Start 06/30/16 at 10:00 Diphenhydramine HCl (Benadryl) 25 mg Q6H PRN IV ITCHING; Start 06/30/16 at 10: 00 Naloxone HCl (Narcan) 0.2 mg Q2M PRN IV RR 8 BREATHS/MIN OR LESS; Start at 10:00 Miscellaneous Information 1. Hold QC TECH at 1,000... QC TECH IV ; Start 06/30/16 at 10: 00 Amlodipine Besylate (Norvasc) 5 mg DAILY PO Last administered on 07/03/16 08: 44; Admin Dose 5 MG; Start 06/30/16 at 17:00 Venlafaxine HCl (Effexor Xr) 75 mg DAILY PO Last administered on 07/03/16 08: 44; Admin Dose 75 MG; Start 07/01/16 at 09:00 Hydromorphone HCl QC TECH to be started in PACU Q4PCA IV Last administered on 01:30; Admin Dose 6 MG; Start 07/01/16 at 10:30 Sodium Chloride (NS) 1,000 ml @ 125 mls/hr Q8H IV Last administered on 22:10; Admin Dose 125 MLS/HR; Start 07/02/16 at 12:30 Colchicine (Colchicine) 0.6 mg DAILY PO ; Start 07/04/16 at 09:00 Methylprednisolone Sodium Succinate (Solu-Medrol) 20 mg Q8 IV ; Start 07/03/16 at 09:00; Stop 07/04/16 at 09:00; Status OPAL CLEANING MD Jul 03, 2016 08:55
[2016-07-03] MEDS: METHYLPREDNISOLONE 40 MG INJ IV SCH ×3 (09:33→21:03)
[2016-07-03 19:58] VITALS: BP 118/68; RESP 18
[2016-07-04] MEDS: SOD CHLORIDE 0.9% 1,000 ML IV SCH (00:51)
[2016-07-04] MEDS: METHYLPREDNISOLONE 40 MG INJ IV SCH (05:40)
[2016-07-04 05:50] LABS: ADD SCAN DIFF NO
[2016-07-04 05:52] LABS: ABNORMAL IP MESSAGE 1; BASOPHILS % 0.1 % (0.0-2.0); HEMATOCRIT 37.1 % (42.0-52.0); HEMOGLOBIN 12.8 g/dl (14.0-18.0); LYMPHOCYTES # 0.5 10^3/ul (0.8-2.9); LYMPHOCYTES % 4.8 % (15.0-51.0); MEAN CORPUSCULAR HEMOGLOBIN 31.1 pg (29.0-33.0); MEAN CORPUSCULAR HGB CONC 34.5 g/dl (32.0-37.0); MONOCYTE # 0.5 10^3/ul (0.3-0.9); MONOCYTES % 4.7 % (0.0-11.0); NEUTROPHIL # 9.1 10^3/ul (1.6-7.5); PLATELET COUNT 216 10^3/UL (140-415); RED BLOOD COUNT 4.12 10^6/ul (4.70-6.10); RED CELL DISTRIBUTION WIDTH 11.8 % (11.5-14.5); WHITE BLOOD COUNT 10.2 10^3/ul (4.8-10.8)
[2016-07-04] MEDS ORDERED: PANTOPRAZOLE (EC) 40 MG TAB PO SCH (06:00)
[2016-07-04 06:13] LABS: CALCIUM 8.9 mg/dl (8.4-10.2); CREATININE 0.74 mg/dl (0.61-1.24); MAGNESIUM 2.5 mg/dl (1.7-2.5); PHOSPHORUS 3.6 mg/dl (2.5-4.9); POTASSIUM 4.7 mmol/L (3.5-5.1)
[2016-07-04 07:00] VITALS: BP 146/96; RESP 18
[2016-07-04] MEDS: DOCUSATE SODIUM 100 MG CAP PO SCH (08:34)
[2016-07-04] MEDS: VENLAFAXINE (XR) 75 MG CAP PO SCH (08:34)
[2016-07-04] MEDS: AMLODIPINE 5 MG TAB PO SCH (08:35)
[2016-07-04] MEDS: OXYCODONE/ACETAMINOPHEN (10/325) TAB PO PRN (08:37)
[2016-07-04] MEDS ORDERED: COLCHICINE 0.6 MG TAB PO SCH (09:00)
--- NOTE | 2016-07-04 09:37 | DS ---
Date/Time of Note Date/Time of Note DATE: 07/04/16 TIME: 09:31 Discharge Summary Admission/Discharge Info Admit Date/Time Jun 30, 2016 at 07:47 Discharge Date/Time 07/04/2016 11AM Final Diagnosis S/P lumbar decompression Patient Condition: Good Consults Dr. Blanton - Spine Surgery Kassie Cruz - Spine Surgery PA Dr. Tolentino - Internal Medicine Procedures 06/30 lumbar decompression Hx of Present Illness Mr. Toney is a pleasant 61yo man with chronic lumbar pain and neuropathy failing outpatient medical therapy. He presented for planned 06/30 lumbar decompression. Hospital Course He has been doing well post operatively. Course was complicated by mild hyponatremia from mild SIADH vs hypovolemia, resolved prior to DC. He was weaned from [employer] to po pain meds on 07/02. He had LE duplex without DVT done due to onset of ankle pain/swelling. This was ultimately presumed to be secondary to flare of gout vs pseudogout in R ankle and R knee limiting mobility which has been improving with steroids and colchicine and will continue this upon DC. He has had prior gout flare with surgery in past. Depression has been stable. Essential HTN controlled on Norvasc. Vitals wnl Gen: NAD HEENT: NC/AT, mmm, no op lesions CV: RRR, no murmur Pulm: CTA bilat Abd: soft, NT/ND, +BS Ext: swelling and warmth to touch with mild erythema over medial R ankle; mild swelling of R knee and L knee Meds on DC: Venlafaxine 75 mg qday Norvasc 5mg po qday New Meds: Medrol dose pack Colchicine 0.6mg po qday x 7 days PRN gout flare [facility] PRN Flexeril PRN Discussed with Kassie Cruz NP Home Meds Reported Medications Hydrocodone/Acetaminophen ([facility] 10-325 Tablet) 1 Each Tablet, 1 EACH PO DAILY Y for PAIN, TAB 06/30/16 Amlodipine Besylate* (Norvasc*) 5 Mg Tablet, 5 MG PO DAILY, TAB 06/30/16 Venlafaxine Hcl* (Effexor XR*) 75 Mg Tab.er.24, 75 MG PO DAILY, TAB.SA 06/30/16 Follow-up Plan Dr. Blanton in 1-2 weeks Pending Labs Laboratory Tests Test 07/04/16 04:43 White Blood Count 10.210^3/ul (4.8-10.8) Red Blood Count 4.1210^6/ul (4.70-6.10) Hemoglobin 12.8g/dl (14.0-18.0) Hematocrit 37.1% (42.0-52.0) Mean Corpuscular Volume 90.0fl (82.0-101.0) Mean Corpuscular Hemoglobin 31.1pg (29.0-33.0) Mean Corpuscular Hemoglobin Concent 34.5g/dl (32.0-37.0) Red Cell Distribution Width 11.8% (11.5-14.5) Platelet Count 95140^3/UL (140-415) Mean Platelet Volume 11.0fl (7.4-10.4) Neutrophils % 90.0% (39.0-77.0) Lymphocytes % 4.8% (15.0-51.0) Monocytes % 4.7% (0.0-11.0) Eosinophils % 0.0% (0.0-7.0) Basophils % 0.1% (0.0-2.0) Nucleated Red Blood Cells % 0.0/100WBC (0.0-0.0) Neutrophils # 9.110^3/ul (1.6-7.5) Lymphocytes # 0.510^3/ul (0.8-2.9) Monocytes # 0.510^3/ul (0.3-0.9) Eosinophils # 0.010^3/ul (0.0-0.5) Basophils # 0.010^3/ul (0.0-0.1) Nucleated Red Blood Cells # 0.010^3/ul (0.0-0.0) Sodium Level 135mmol/L (135-144) Potassium Level 4.7mmol/L (3.5-5.1) Chloride Level 102mmol/L (97-110) Carbon Dioxide Level 28mmol/L (21-31) Anion Gap 10 (8-16) Blood Urea Nitrogen 14mg/dl (7-20) Creatinine 0.74mg/dl (0.61-1.24) Glucose Level 138mg/dl (70-220) Calcium Level 8.9mg/dl (8.4-10.2) Phosphorus Level 3.6mg/dl (2.5-4.9) Magnesium Level 2.5mg/dl (1.7-2.5) VENICE MARINELLI Jul 04, 2016 09:37
--- NOTE | 2016-07-04 09:38 | PDOCDIS ---
Discharge Instructions CONDITION Patient Condition: Good HOME CARE INSTRUCTIONS: Diet Instructions: Regular ACTIVITY: Activity Restrictions: Slowly Increase Activity Rest between Activity Avoid heavy lifting Do not operate Machinery Do not operate Power Tool Avoid Heavy Housework FOLLOW UP/APPOINTMENTS Appointments Dr. Blanton in 1-2 weeks VENICE MARINELLI Jul 04, 2016 09:38
[2016-07-05] MEDS ORDERED: predniSONE 20 MG TAB GTB SCH (09:00)
--- NOTE | 2016-07-07 03:09 | DS ---
DATE OF ADMISSION: 06/30/2016 DATE OF DISCHARGE: 07/04/2016 ADMITTING DIAGNOSIS: Spinal stenosis. DISCHARGE DIAGNOSES: 1. Spinal stenosis. 2. Gout flareup. PROCEDURE: The patient was taken to the operating room on 06/30/2016 and underwent lumbar decompres marielena. HOSPITAL COURSE: The patient was admitted to the orthopedic [facility] after undergoing the above procedu re. He developed what appeared to be a gouty attack of the right knee and left ankle as he had this before. He was treated appropriately with colchicine and steroids by Dr. Tolentino and by 07/04/2016 had done well and was deemed stable for discharge with followup arranged with the undersigned. Dictated By: KAIT STEELE/JUDSON Conf#: [id number] DID#: [id number]
== END 2016-07-04 13:00 | disposition home or self-care (01) | DRG 516 ==
LOC: REC 07:47 → EDSTATUS 11:00 → MS1 15:55
PROVIDERS: ADMIT Specialist; ATTEND Specialist
PROC: 4A11X4G Monitoring of Peripheral Nervous Electrical Activity, Intraoperative, External Approach (ICD-10-PCS; 2016-06-30)
PROC: 01NB0ZZ Release Lumbar Nerve, Open Approach (ICD-10-PCS; principal; 2016-06-30 11:00)
DX: M48.06 Spinal stenosis, lumbar region (principal); E22.2 Syndrome of inappropriate secretion of antidiuretic hormone; M48.07 Spinal stenosis, lumbosacral region; M54.16 Radiculopathy, lumbar region; M54.17 Radiculopathy, lumbosacral region; I10 Essential (primary) hypertension; E78.5 Hyperlipidemia, unspecified; E86.1 Hypovolemia; M10.9 Gout, unspecified
CPT/HCPCS: 72020; 80048; 83735; 84100; 84300; 84560; 85025; 86999; 87040; 87086; 93923; 97116; 97162; 97530; J0330; J0690; J1170; J1644; J2250; J2710; J2765; J2920; J3010; J3480; J7030; J7120